=== PATIENT | female | born 1935 | race Caucasian/White ===

== ENCOUNTER 2018-10-09 09:24 | Emergency (ER) | payer MEDICARE ==
[~2018-10-09] VITALS: Ht 152.4 cm; Wt 100.0 kg
[2018-10-09 09:27] VITALS: Ht 152.4 cm; Wt 100.0 kg
[2018-10-09 09:57] LABS: BASOPHILS 0.1 % (0-2); EOSINOPHILS 0 % (0-7); HEMATOCRIT 35.5 % (36.0-48.0); HEMOGLOBIN 11.1 g/dL (12-16); IMMATURE GRANULOCYTES 0.3 % (0-5); MCH 27.3 pg (26.0-34.0); MCHC 31.3 g/dL (31.0-37.0); MCV 87.2 fL (80.0-100.0); MEAN PLATELET VOLUME 9.4 fL (7.4-10.4); NEUTROPHILS 77.6 % (40-80); PLATELET COUNT 338 10x3/uL (130-400); RBC 4.07 10x6/uL (4.00-5.40); RDW 17.1 % (11.5-14.5); WBC 10.3 10x3/uL (4.8-10.8)
[2018-10-09 10:08] LABS: ANION GAP 13.5 mmol/L (8-16); CALCIUM 8.9 mg/dL (8.5-10.1); CARBON DIOXIDE 29.4 mmol/L (21.0-32.0); CREATININE - SERUM 1.1 mg/dL (0.6-1.3); POTASSIUM - SERUM 3.9 mmol/L (3.5-5.1)
[2018-10-09 10:52] LABS: APTT 38.1 SECONDS (22.8-39.4); INR 1.41 (0.85-1.17); PROTIME 16.7 SECONDS (11.6-15.0)
[2018-10-09 11:16] LABS: APPEARANCE CLEAR (CLEAR); BACTERIA FEW /hpf (NONE SEEN); BILIRUBIN NEGATIVE (NEGATIVE); COLOR YELLOW (YELLOW); GLUCOSE NEGATIVE (NEGATIVE); KETONE SMALL mg/dL (NEGATIVE); NITRITE NEGATIVE (NEGATIVE); PROTEIN NEGATIVE (NEGATIVE); RED CELLS - URINE OCC /hpf (0-5); SPECIFIC GRAVITY 1.015 (1.005-1.020); UROBILINOGEN NORMAL (NORMAL); WHITE CELLS - URINE 0-5 /hpf (0-5)
[2018-10-09] MEDS ORDERED: VOLTAREN75 MG PO (11:30)
[2018-10-09] MEDS ORDERED: BACLOFEN20 M1 PO (11:30)
[2018-10-09 12:11] VITALS: BP 169/67
[2018-10-10] MEDS ORDERED: AVAPRO300 MG PO (10:03)
[2018-10-10] MEDS ORDERED: ALDACTONE25 MG PO (10:03)
[2018-10-10] MEDS ORDERED: TIROSINT75 MCG PO (10:03)
[2018-10-10] MEDS ORDERED: BUMETANIDE0.5 MG PO (10:03)
[2018-10-10] MEDS ORDERED: XARELTO10 MG PO (10:04)
[2018-10-10] MEDS ORDERED: PACERONE200 MG PO (10:04)
[2018-10-10] MEDS ORDERED: BYSTOLIC5 MG PO (10:05)
[2018-10-10] MEDS ORDERED: BUSPAR 15 MG TA15 MG PO (10:05)
[2018-10-10] MEDS ORDERED: PRAVACHOL80 MG PO (10:05)
[2018-10-10] MEDS ORDERED: NAMENDA10 MG PO (10:06)
[2018-10-13 10:24] VITALS: Ht 152.4 cm; Wt 100.0 kg
== END 2018-10-09 12:12 | disposition home or self-care (01) ==
LOC: D.ER 09:24
PROVIDERS: Family Medicine
DX: S49.92XA Unspecified injury of left shoulder and upper arm, initial encounter (principal); W18.30XA Fall on same level, unspecified, initial encounter; Y93.89 Activity, other specified; Y92.019 Unspecified place in single-family (private) house as the place of occurrence of the external cause; M79.18 Myalgia, other site

== ENCOUNTER 2018-10-10 09:57 | Observation (INO) | payer MEDICARE ==
[~2018-10-10] VITALS: Ht 154.9 cm; Wt 94.9 kg
[~2018-10-10 09:57] MED LIST: BACLOFEN20 M1 PO; VOLTAREN75 MG PO
[2018-10-10] MEDS ORDERED: ALDACTONE25 MG PO (10:03)
[2018-10-10] MEDS ORDERED: TIROSINT75 MCG PO (10:03)
[2018-10-10] MEDS ORDERED: AVAPRO300 MG PO (10:03)
[2018-10-10] MEDS ORDERED: BUMETANIDE0.5 MG PO (10:03)
[2018-10-10] MEDS ORDERED: XARELTO10 MG PO (10:04)
[2018-10-10] MEDS ORDERED: PACERONE200 MG PO (10:04)
[2018-10-10] MEDS ORDERED: PRAVACHOL80 MG PO (10:05)
[2018-10-10] MEDS ORDERED: BYSTOLIC5 MG PO (10:05)
[2018-10-10] MEDS ORDERED: BUSPAR 15 MG TA15 MG PO (10:05)
[2018-10-10] MEDS ORDERED: NAMENDA10 MG PO (10:06)
[2018-10-10 11:09] LABS: BASOPHILS 0.1 % (0-2); EOSINOPHILS 0.3 % (0-7); HEMATOCRIT 35.7 % (36.0-48.0); HEMOGLOBIN 11.1 g/dL (12-16); IMMATURE GRANULOCYTES 0.2 % (0-5); LYMPHOCYTES 10.3 % (15-50); MCH 27.1 pg (26.0-34.0); MCHC 31.1 g/dL (31.0-37.0); MCV 87.3 fL (80.0-100.0); MEAN PLATELET VOLUME 9.6 fL (7.4-10.4); MONOCYTES 11.7 % (2-11); NEUTROPHILS 77.4 % (40-80); PLATELET COUNT 318 10x3/uL (130-400); RBC 4.09 10x6/uL (4.00-5.40); RDW 17.1 % (11.5-14.5)
[2018-10-10 11:29] LABS: ALBUMIN 3.4 g/dL (3.4-5.0); ALKALINE PHOSPHATASE 50 U/L (46-116); ALT (SGPT) 45 U/L (10-68); BILIRUBIN - TOTAL 0.46 mg/dL (0.2-1.3); CALC OSMOLALITY 289 mosm/kg (275-300); CALCIUM 8.6 mg/dL (8.5-10.1); CARBON DIOXIDE 28.3 mmol/L (21.0-32.0); CHLORIDE - SERUM 105 mmol/L (98-107); GLUCOSE 115 mg/dL (74-106); POTASSIUM - SERUM 3.9 mmol/L (3.5-5.1); PROTEIN - SERUM 7.2 g/dL (6.4-8.2); SODIUM 143 mmol/L (136-145); UREA NITROGEN 24 mg/dL (7-18); eGFR NON AFRICAN AMERICAN 56 mL/min (90-120)
[2018-10-10 11:38] LABS: CREATINE KINASE 722 UL (21-215); MAGNESIUM - SERUM 2.2 mg/dL (1.8-2.4); TROPONIN-I 0.026 ng/mL (0.000-0.060)
[2018-10-10 11:41] LABS: APTT 33.2 SECONDS (22.8-39.4); INR 1.16 (0.85-1.17); PROTIME 14.3 SECONDS (11.6-15.0)
[2018-10-10 12:10] VITALS: BP 177/79
[2018-10-10 13:04] VITALS: BP 157/82
--- NOTE | 2018-10-10 14:15 | NUR ---
PT TO THE FLOOR VIA BED, DAUGHTER ANS SON N LAW WITH PT. ASSISTED GETTING PT INTO BED. CALL LIGHT WITHIN REACH AND BED IN LOWEST POSITION.
[2018-10-10 15:00] VITALS: BP 176/72; BMI 39.0
[2018-10-10 15:32] VITALS: BP 176/72
--- NOTE | 2018-10-10 17:29 | NUR ---
PT WOKE WHEN TALKED VERY LOUDLY. PT ASKED IF SHE COULD GO PEE, GOT PT TO BC. PT HAS LOTS OF JERKING AND MUSCLE SPAMS. ASSISTED PT BACK TO BED. PT WAS ABLE TO BARE WEIGHT ON OWN JUST VERY UNSTEADY. GOT PT COMFORTABLE. CALL LIGHT WITHIN REACH AND BED IN LOWEST POSITION.
--- NOTE | 2018-10-10 19:58 | NUR ---
RECIEVED UP IN BED WITH EYES OPEN. UNABLE TO ANSWER QUESTIONS. HAS WORD SALAD AT THIS TIME. NO OBVIOUS S/S OF DISTRESS. BRUISING TO LEFT ARM . IV TO RIGHT FA SL AT THIS TIME.
[2018-10-10 21:11] VITALS: BP 121/46
--- NOTE | 2018-10-10 23:17 | NUR ---
ABLE TO GIVE MEDICATION. MORE ALERT AND ABLE TO ANSWER SIMOLE QUESTIONS. STILL BABBLES SOME. RIGHT EYE STLL SLUGGISH AND LEFT EYE BRISK. REFUSED DINNER STATED "NOT HUNGRY". C/O SOME BACK PAIN.
--- NOTE | 2018-10-11 02:33 | NUR ---
MORE ALERT ANAD ORIENTED X2. CONFUSED TO TIME AND SITUATION. ANSWERS CLEARLY AND APPROPRIATLY. IV OUT AND RESTARTED TO LEFT HAND WITH 22G ATTEMPTS X1. NS INFUSING AT 125CCF/HR. DENIES ANY NEEDS AT THIS TIME.
--- NOTE | 2018-10-11 03:04 | NUR ---
UP IN BED WITH EYES OPEN AND TV ON. NO S/S OF DISTRESS OBSERVED.
[2018-10-11 03:55] VITALS: BP 147/64
[2018-10-11 06:37] LABS: BASOPHILS 0 % (0-2); EOSINOPHILS 0 % (0-7); HEMATOCRIT 32.4 % (36.0-48.0); IMMATURE GRANULOCYTES 0.2 % (0-5); LYMPHOCYTES 7.3 % (15-50); MCHC 30.9 g/dL (31.0-37.0); MCV 87.3 fL (80.0-100.0); MONOCYTES 6.7 % (2-11); NEUTROPHILS 85.8 % (40-80); PLATELET COUNT 343 10x3/uL (130-400); RBC 3.71 10x6/uL (4.00-5.40); RDW 17.1 % (11.5-14.5); WBC 9.7 10x3/uL (4.8-10.8)
[2018-10-11 06:49] LABS: CALC OSMOLALITY 293 mosm/kg (275-300); CALCIUM 8.3 mg/dL (8.5-10.1); CARBON DIOXIDE 24.3 mmol/L (21.0-32.0); CHLORIDE - SERUM 107 mmol/L (98-107); CKMB 1.9 U/L (0.0-3.6); CREATININE - SERUM 0.9 mg/dL (0.6-1.3); GLUCOSE 132 mg/dL (74-106); POTASSIUM - SERUM 3.8 mmol/L (3.5-5.1); SODIUM 144 mmol/L (136-145); UREA NITROGEN 26 mg/dL (7-18); eGFR NON AFRICAN AMERICAN 63 mL/min (90-120)
[2018-10-11 06:50] LABS: CREATINE KINASE 368 UL (21-215); TROPONIN-I < 0.017 ng/mL (0.000-0.060)
--- NOTE | 2018-10-11 07:25 | NUR ---
REPORT RECEIVED. WILL CONTINUE WITH POC. PT CURRENTLY LYING SUPINE, RESTING. CALL LIGHT W/I REACH. PT IS BEDFAST AND TURN Q2H. RR EVEN AND UNLABORED ON 2L 02. NS INFUSING @125ML/HR VIA L.HAND PIV. NO S/S OF DISTRESS NOTED. WILL CTM.
[2018-10-11 08:28] VITALS: BP 174/71
[2018-10-11 12:11] VITALS: BP 163/74
[2018-10-11 13:40] VITALS: Ht 154.9 cm; Wt 94.9 kg
[2018-10-11 16:48] VITALS: BP 137/57
--- NOTE | 2018-10-11 17:06 | NUR ---
PT CURRENTLY LYING SEMI FOWLERS. CALL LIGHT W/I REACH. PT IS AA BUT CONFUSED AT TIMES TO SITUATION AND PERSON AND TIME. RR EVEN AND UNLABORED ON 2L 02. NS INFUSING @125ML/HR VIA L.HAND PIV. NO S/S OF DISTRESS NOTED. WILL CTM.
--- NOTE | 2018-10-11 18:21 | NUR ---
I have reviewed this patient and I concur with the Shift Assessment completed by the Licensed Practical Nurse today this shift.
--- NOTE | 2018-10-11 18:37 | MORECARE ---
CASE MANAGEMENT DISCHARGE SUMMARY PATIENT: BLANCA CLARK UNIT: [id number] ADM DATE: 10/10/18 AGE: 83 : 34 SEX: F ROOM/BED: D.2130 AUTHOR: MANINDER COLLADO PHYSICIAN: REFERRING PHYSICIAN: FREDA REDDING MD DATE OF SERVICE: 10/11/18 Discharge Plan Patient Name: BLANCA CLARK Facility: [facility]:[place] : 1935 Planned Disposition: Anticipated Discharge Date: Discharge Date: Expected LOS: Initial Reviewer: [email or web address] Initial Review Date: 10/11/2018 Generated: 10/11/18 7:37 pm Coverage Notice Reviewer: [id number] - Gorge Hrarison Notice Issued Date-Time: 10/11/2018 18:16 Notice Type: Medicare Outpatient Observation Notice Notice Delivered To: Family Member Relationship to Patient: Daughter Climate Change Analyst Name: PATSY NIELSEN Delivery Method: HAND - Hand Delivered Kathy Days: Prior Verbal Notification: Recipient Understood Notice: Yes Recipient Signature: Yes Med Rec Note Co-signed by Attending: Coverage Notice Comment: Patient Name: BLANCA CLARK Page [phone] at 1837 All edits/amendments must be made on the electronic document DICTATION DATE: 10/11/181835 PATROL SERGEANT: DARIO 10/11/181835 RPT#: [id number] DC DATE: STATUS: ADM IN [facility] [address] [place] [address] END OF REPORT
[2018-10-11 20:00] VITALS: BP 149/51
[2018-10-12 00:30] VITALS: BP 169/61
[2018-10-12 04:30] VITALS: BP 152/63
[2018-10-12 06:57] LABS: BASOPHILS 0.1 % (0-2); EOSINOPHILS 0.6 % (0-7); HEMOGLOBIN 10.3 g/dL (12-16); IMMATURE GRANULOCYTES 0.4 % (0-5); LYMPHOCYTES 12.8 % (15-50); MCH 26.8 pg (26.0-34.0); MCHC 30.3 g/dL (31.0-37.0); MCV 88.3 fL (80.0-100.0); MEAN PLATELET VOLUME 10.1 fL (7.4-10.4); MONOCYTES 12.9 % (2-11); NEUTROPHILS 73.2 % (40-80); PLATELET COUNT 338 10x3/uL (130-400); RBC 3.85 10x6/uL (4.00-5.40); RDW 17.2 % (11.5-14.5); WBC 10.8 10x3/uL (4.8-10.8)
[2018-10-12 07:20] LABS: ANION GAP 12.1 mmol/L (8-16); CARBON DIOXIDE 24.7 mmol/L (21.0-32.0); POTASSIUM - SERUM 3.8 mmol/L (3.5-5.1)
[2018-10-12 08:17] VITALS: BP 156/64
[2018-10-12 12:08] VITALS: BP 140/54
[2018-10-12 13:31] LABS: APPEARANCE CLEAR (CLEAR); BILIRUBIN NEGATIVE (NEGATIVE); COLOR STRAW (YELLOW); GLUCOSE NEGATIVE (NEGATIVE); KETONE NEGATIVE (NEGATIVE); NITRITE NEGATIVE (NEGATIVE); PROTEIN NEGATIVE (NEGATIVE); UROBILINOGEN NORMAL (NORMAL)
--- NOTE | 2018-10-12 14:53 | MORECARE ---
CASE MANAGEMENT DISCHARGE SUMMARY PATIENT: BLANCA CLARK UNIT: [id number] ADM DATE: 10/10/18 AGE: 83 : 34 SEX: F ROOM/BED: D.2130 AUTHOR: MANINDER COLLADO PHYSICIAN: REFERRING PHYSICIAN: FREDA REDDING MD DATE OF SERVICE: 10/12/18 Discharge Plan Patient Name: BLANCA CLARK Facility: [facility]:[place] : 1935 Planned Disposition: Anticipated Discharge Date: Discharge Date: Expected LOS: Initial Reviewer: [email or web address] Initial Review Date: 10/11/2018 Generated: 10/12/18 3:53 pm Comments DCP- Discharge Planning Updated by [email or web address]: Wendy Sims on 10/12/18 1:[address] MARTÍN WHIPPLE APN WITH DR LUCAS CAME TO ME QUESTIONING OPTIONS FOR THE OBSERVATION PATIENT. OPTIONS DISCUSSED. TALKED WITH PATIENT AND HER DAUGHTER AND SON-IN-LAW (AFTER VERBAL CONSENT RECEIVED). PATIENT AND DAUGHTER VERY INTERESTED. RELAYED THIS TO MARTÍN AND TO MAX PORTER CM IN REHAB. CHARLOTTE STATED SHE COULD HAVE THE SCREEN COMPLETED AND PT COULD DISCHARGE TODAY. RELAYED THIS TO NAVEEN RESENDIZ WHO STATED SHE WOULD DISCHARGE. Coverage Notice Reviewer: [email or web address] - Gorge Christy Notice Issued Date-Time: 10/11/2018 18:16 Notice Type: Medicare Outpatient Observation Notice Notice Delivered To: Family Member Relationship to Patient: Daughter Birdcage Assembler Name: PATSY NIELSEN Delivery Method: HAND - Hand Delivered Kathy Days: Prior Verbal Notification: Recipient Understood Notice: Yes Recipient Signature: Yes Med Rec Note Co-signed by Attending: Coverage Notice Comment: Last DP export: 10/11/18 5:37 pm Patient Name: BLANCA CLARK Page [phone] at 1453 All edits/amendments must be made on the electronic document DICTATION DATE: 10/12/181451 DRUM SANDER: DARIO 10/12/18 145 RPT#: [id number] DC DATE: STATUS: ADM IN [facility] [address] [place] [address] END OF REPORT
[2018-10-12] MEDS ORDERED: ACETAMINOPHEN325 MG PO (15:02)
[2018-10-12 15:58] VITALS: BP 130/55
--- NOTE | 2018-10-12 17:15 | MORECARE ---
CASE MANAGEMENT DISCHARGE SUMMARY PATIENT: BLANCA CLARK UNIT: [id number] ADM DATE: 10/10/18 AGE: 83 : 34 SEX: F ROOM/BED: D.2130 AUTHOR: MANINDER COLLADO PHYSICIAN: REFERRING PHYSICIAN: FREDA REDDING MD DATE OF SERVICE: 10/12/18 Discharge Plan Patient Name: BLANCA CLARK Facility: [facility]:[place] : 1935 Planned Disposition: Inpatient Rehab Anticipated Discharge Date: 10/12/18 Discharge Date: Expected LOS: 2 Initial Reviewer: [email or web address] Initial Review Date: 10/11/2018 Generated: 10/12/18 6:15 pm Comments DCP- Discharge Planning Updated by [email or web address]: Wendy Sims on 10/12/18 1:[address] [facility]N WHIPPLE APN WITH DR LUCAS CAME TO ME QUESTIONING OPTIONS FOR THE OBSERVATION PATIENT. OPTIONS DISCUSSED. TALKED WITH PATIENT AND HER DAUGHTER AND SON-IN-LAW (AFTER VERBAL CONSENT RECEIVED). PATIENT AND DAUGHTER VERY INTERESTED. RELAYED THIS TO MARTÍN AND TO MAX PORTER CM IN REHAB. CHARLOTTE STATED SHE COULD HAVE THE SCREEN COMPLETED AND PT COULD DISCHARGE TODAY. RELAYED THIS TO NAVEEN RESENDIZ WHO STATED SHE WOULD DISCHARGE. Coverage Notice Reviewer: [email or web address] - Gorge Christy Notice Issued Date-Time: 10/11/2018 18:16 Notice Type: Medicare Outpatient Observation Notice Notice Delivered To: Family Member Relationship to Patient: Daughter Outside Sales Account Manager Name: PATSY NIELSEN Delivery Method: HAND - Hand Delivered Kathy Days: Prior Verbal Notification: Recipient Understood Notice: Yes Recipient Signature: Yes Med Rec Note Co-signed by Attending: Coverage Notice Comment: Last DP export: 10/12/18 1:53 pm Patient Name: BLANCA CLARK Page [phone] at 1715 All edits/amendments must be made on the electronic document DICTATION DATE: 10/12/181714 GRANULATOR MACHINE OPERATOR: DARIO 10/12/181714 RPT#: [id number] DC DATE: STATUS: ADM IN [facility] [address] [place] [address] END OF REPORT
--- NOTE | 2018-10-12 17:27 | NUR ---
WITHOUT CHANGES OR DISTRESS NOTED AT THIS TIME. DENIES NEEDS
--- NOTE | 2018-10-12 19:39 | NUR ---
AWAITING TRANSFER TO REHAB FLOOR ALERT AND OX3 PERHAPS NOT COMPLETELY TO SITUATION. O2/2L LUNGS DEMINISHED BUT CLEAR ASSISTED UP TO BEDSIDE CHAIR AT THIS TIME AND PROVIDED CALL LIGHT PT TOLERATED WELL
--- NOTE | 2018-10-12 20:35 | NUR ---
DCED At this time via wc to rehab room [id number]
== END 2018-10-12 20:46 ==
LOC: D.ER 09:57 → D.EDHOLD 12:40 → OBSVTIME 12:40 → D.M2 13:23
PROVIDERS: Family Medicine; ADMIT Internal Medicine Nephrology; ATTEND Internal Medicine Nephrology
DX: T42.8X1A Poisoning by antiparkinsonism drugs and other central muscle-tone depressants, accidental (unintentional), initial encounter (principal); G24.09 Other drug induced dystonia; G72.0 Drug-induced myopathy; I25.10 Atherosclerotic heart disease of native coronary artery without angina pectoris; I48.91 Unspecified atrial fibrillation; I10 Essential (primary) hypertension; K21.9 Gastro-esophageal reflux disease without esophagitis; E66.9 Obesity, unspecified; Z68.39 Body mass index [BMI] 39.0-39.9, adult

== ENCOUNTER 2018-10-12 21:22 | Inpatient (IN) | payer MEDICARE ==
[~2018-10-12 21:22] MED LIST changes: +ACETAMINOPHEN325 MG PO; +ALDACTONE25 MG PO; +AVAPRO300 MG PO; +BUMETANIDE0.5 MG PO; +BUSPAR 15 MG TA15 MG PO; +BYSTOLIC5 MG PO; +NAMENDA10 MG PO; +PACERONE200 MG PO; +PRAVACHOL80 MG PO; +TIROSINT75 MCG PO; +XARELTO10 MG PO
[2018-10-13 00:24] VITALS: BP 165/74; BMI 40.3
[2018-10-13 07:58] VITALS: BP 172/63
[2018-10-13 10:24] VITALS: BMI 40.2
[2018-10-13 10:38] LABS: BASOPHILS 0.1 % (0-2); EOSINOPHILS 1.4 % (0-7); HEMATOCRIT 34.8 % (36.0-48.0); HEMOGLOBIN 10.8 g/dL (12-16); IMMATURE GRANULOCYTES 0.4 % (0-5); LYMPHOCYTES 15.2 % (15-50); MEAN PLATELET VOLUME 9.9 fL (7.4-10.4); MONOCYTES 15.9 % (2-11); PLATELET COUNT 372 10x3/uL (130-400); RDW 16.7 % (11.5-14.5); WBC 8.3 10x3/uL (4.8-10.8)
[2018-10-13 10:45] LABS: ANION GAP 12.3 mmol/L (8-16); CALCIUM 8.2 mg/dL (8.5-10.1); CARBON DIOXIDE 27.9 mmol/L (21.0-32.0); CREATININE - SERUM 1.2 mg/dL (0.6-1.3)
[2018-10-13 10:46] LABS: POTASSIUM - SERUM 3.2 mmol/L (3.5-5.1)
[2018-10-13 20:02] VITALS: BP 155/64
[2018-10-14 08:01] VITALS: BP 153/60
[2018-10-14 19:00] VITALS: BP 128/50
[2018-10-15 08:00] VITALS: BP 161/74
[2018-10-15 08:29] LABS: ANION GAP 12.2 mmol/L (8-16); CALCIUM 8.1 mg/dL (8.5-10.1); CARBON DIOXIDE 27.7 mmol/L (21.0-32.0); CREATININE - SERUM 0.9 mg/dL (0.6-1.3)
[2018-10-15 08:36] LABS: BASOPHILS 0.1 % (0-2); EOSINOPHILS 1.2 % (0-7); HEMATOCRIT 32.2 % (36.0-48.0); HEMOGLOBIN 10.1 g/dL (12-16); IMMATURE GRANULOCYTES 0.5 % (0-5); LYMPHOCYTES 15.2 % (15-50); MCH 26.7 pg (26.0-34.0); MCHC 31.4 g/dL (31.0-37.0); MCV 85.2 fL (80.0-100.0); MEAN PLATELET VOLUME 10.1 fL (7.4-10.4); MONOCYTES 19.2 % (2-11); NEUTROPHILS 63.8 % (40-80); PLATELET COUNT 340 10x3/uL (130-400); RBC 3.78 10x6/uL (4.00-5.40); RDW 16.6 % (11.5-14.5); WBC 8.5 10x3/uL (4.8-10.8)
[2018-10-15 19:15] VITALS: BP 147/57
[2018-10-16 08:38] VITALS: BP 175/55
[2018-10-16 20:29] VITALS: BP 138/54
[2018-10-17 19:05] VITALS: BP 129/43
[2018-10-18 08:00] VITALS: BP 147/74
[2018-10-18 08:03] LABS: BASOPHILS 0.1 % (0-2); EOSINOPHILS 2.8 % (0-7); HEMATOCRIT 32.7 % (36.0-48.0); HEMOGLOBIN 10.1 g/dL (12-16); IMMATURE GRANULOCYTES 0.7 % (0-5); MCH 26.4 pg (26.0-34.0); MCHC 30.9 g/dL (31.0-37.0); MCV 85.4 fL (80.0-100.0); MEAN PLATELET VOLUME 9.4 fL (7.4-10.4); MONOCYTES 16.7 % (2-11); NEUTROPHILS 59.7 % (40-80); RBC 3.83 10x6/uL (4.00-5.40); RDW 16.4 % (11.5-14.5); WBC 6.8 10x3/uL (4.8-10.8)
[2018-10-18 08:06] LABS: PLATELET COUNT 416 10x3/uL (130-400)
[2018-10-18 08:10] LABS: CALCIUM 8.4 mg/dL (8.5-10.1); CARBON DIOXIDE 31.2 mmol/L (21.0-32.0); CREATININE - SERUM 1.1 mg/dL (0.6-1.3); POTASSIUM - SERUM 4.2 mmol/L (3.5-5.1)
--- NOTE | 2018-10-18 09:58 | RHP ---
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 The patient presents to the ER on 10/10/2018 with altered mental status and sedation, she fell on 10/08/2018 went to the ER, was prescribed baclofen 20 mg 4 times daily. She was given two of the back about 6 hours apart. She became very sedated. She required max assist times 2 to mobilize her prior to coming to the hospital. CT of her head was clear for bleed. She takes Xarelto at home for atrial fibrillation and was worried that from a fall that maybe she had an inner cerebral bleed. She has got a history of hypothyroidism, coronary artery disease, AFib, pacemaker placement. She has had a history of joint replacement, hysterectomy in the past. She was followed in the acute hospital secondary to a dystonic type drug reaction to baclofen. She is unable to recall time and things that happen when she was on the baclofen. Her confusion cleared, monitor closely and receiving IV Solu-Medrol. She is currently on telemetry. She is on supplemental O2. She was not on this at home. She is deconditioned. She has debility. She has got proximal muscle weakness, impaired mobility and self-care deficit. These are all barriers to discharge at this time. She lives at home, was moderately independent with rolling walker for mobility, independent to moderately independent with ADLs. She is currently set up for max assist for ADLs and [id number] assist for mobility. She and her family hopefully will get her back home after acute stay if we can get her back to her prior level of functioning. COMORBIDITIES: In this patient include dystonic drug reaction, altered mental status, atrial fib, hypertension, deconditioning, debility, weakness, acute memory loss, self-care deficit and recent falls and also myopathy. PAST MEDICAL HISTORY: Significant for atrial fib, hypothyroidism, history of pacemaker placement, coronary artery disease, breast cancer, acid reflux, arthritis, joint problems. PAST SURGICAL HISTORY: Includes hip surgery, knee surgery, hysterectomy. She has had angioplasty and stent placement and pacemaker placement. ALLERGIES: CODEINE, DOXAZOSIN AND OBVIOUSLY DOES NOT NEED TO BE TAKING ANY BACLOFEN, AND PENICILLIN. CURRENT MEDICATIONS: Include Bystolic 10 mg daily, Avapro 150 mg daily, spironolactone 25 mg daily. She is on Xarelto 10 mg daily, Pravachol 80 mg at bedtime, Namenda 10 mg b.i.d., Synthroid 75 mcg daily, Bumex 0.5 mg daily, amiodarone 200 mg at bedtime, and Tylenol 650 every 4 hours p.r.n. HABITS: No current alcohol or tobacco use. HISTORY AND PHYSICAL [id number] BLANCA CLARK FAMILY HISTORY: Noncontributory. SOCIAL HISTORY: The patient hopes to return back home and get back to her prior level of functioning. REVIEW OF SYSTEMS: GENERAL: Does complain of weakness and fatigue. HEENT: Denies cold, cough, or congestion. CARDIOVASCULAR: Denies chest pain. PHYSICAL EXAMINATION: VITAL SIGNS: Stable, afebrile. GENERAL: A morbidly obese female, in no distress upon exam. HEENT: Normocephalic and atraumatic. Mucosa moist. NECK: Supple. No lymphadenopathy. LUNGS: Clear at this time with no wheeze, rhonchi or rales. HEART: Irregular rate and rhythm. No murmurs, rubs, or gallops. ABDOMEN: Benign, nontender, nondistended. EXTREMITIES: No clubbing, cyanosis or edema. She does have some excoriations from previous falls. NEUROLOGIC: She does have noted proximal muscle weakness, difficulty arising, cannot even get up from a sitting position at this time. Admit labs are pending at this time. 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 The patient has potential to make improvement. We instituted the following multidisciplinary therapies include, but not limited to physical, occupational, respiratory, speech, nutritional services, prosthetics and orthotics. Given her complex medical condition and risk for more complications, rehabilitation services cannot be provided at a low level of care such as skilled nurse facility. PLAN: 1. Admit to [facility] rehab for intensive inpatient therapy to include the following disciplines: A. Physical therapy to improve gait, all transfer skills and bed mobility to a modified independent level. B. Occupational therapy to a modified independent level. C. Case management to assist with discharge planning and placement options. D. Nutrition to assist with nutritional needs. E. Rehabilitation nursing to assist in monitoring the patient's underlying medical conditions and to assist with any type of bowel or bladder management. 2. The patient's current medication and medical care will be continued. 3. We will try to titrate her off her O2 during her stay. 4. We will work on her proximal muscle weakness and self-care deficits, which are barriers to her discharge at this time and once we getting her up and around and independent again with her care, we will get her back home. TRANSINT:[id number] Voice Confirmation ID: [id number] DOCUMENT ID: [id number] MISSY notes whether there has been none or any medical/functional change since admission: - No change since preadmission screen. HISTORY AND PHYSICAL [id number] BLANCA CLARK attests patient continues to be appropriate for IRF: - Continues to be appropriate. CHAR DUONG MD at 0958 CC: [id number] DICTATION DATE: 10/13/18817 YARDING SUPERVISOR: 10/13/18 0852 ADM IN [facility] [id number] [place] [address]
[2018-10-18 19:00] VITALS: BP 156/68
[2018-10-19 08:00] VITALS: BP 158/67
[2018-10-19 19:00] VITALS: BP 121/49
[2018-10-20 07:58] LABS: ANION GAP 10.2 mmol/L (8-16); CALCIUM 8.9 mg/dL (8.5-10.1); CARBON DIOXIDE 30.8 mmol/L (21.0-32.0)
[2018-10-20 08:09] LABS: BASOPHILS 0.1 % (0-2); EOSINOPHILS 1.9 % (0-7); HEMATOCRIT 35.6 % (36.0-48.0); HEMOGLOBIN 11.1 g/dL (12-16); IMMATURE GRANULOCYTES 0.6 % (0-5); LYMPHOCYTES 17.6 % (15-50); MCH 26.9 pg (26.0-34.0); MCHC 31.2 g/dL (31.0-37.0); MCV 86.4 fL (80.0-100.0); MEAN PLATELET VOLUME 9.4 fL (7.4-10.4); MONOCYTES 16.2 % (2-11); NEUTROPHILS 63.6 % (40-80); PLATELET COUNT 420 10x3/uL (130-400); RBC 4.12 10x6/uL (4.00-5.40); RDW 16.8 % (11.5-14.5); WBC 8.4 10x3/uL (4.8-10.8)
[2018-10-20 13:21] VITALS: BP 116/49
[2018-10-20 19:00] VITALS: BP 145/51
[2018-10-21 08:00] VITALS: BP 121/36
[2018-10-21 19:00] VITALS: BP 109/52
[2018-10-22 06:23] LABS: ANION GAP 12.2 mmol/L (8-16); CALCIUM 8.3 mg/dL (8.5-10.1); CARBON DIOXIDE 28.8 mmol/L (21.0-32.0)
[2018-10-22 06:24] LABS: CREATININE - SERUM 1.4 mg/dL (0.6-1.3)
[2018-10-22 06:59] LABS: BASOPHILS 0.3 % (0-2); EOSINOPHILS 2.2 % (0-7); HEMATOCRIT 32.5 % (36.0-48.0); HEMOGLOBIN 10.2 g/dL (12-16); IMMATURE GRANULOCYTES 0.3 % (0-5); LYMPHOCYTES 25.7 % (15-50); MCH 26.7 pg (26.0-34.0); MCHC 31.4 g/dL (31.0-37.0); MCV 85.1 fL (80.0-100.0); MEAN PLATELET VOLUME 9.2 fL (7.4-10.4); NEUTROPHILS 56.5 % (40-80); PLATELET COUNT 442 10x3/uL (130-400); RBC 3.82 10x6/uL (4.00-5.40); RDW 16.6 % (11.5-14.5)
[2018-10-22 07:00] LABS: WBC 5.9 10x3/uL (4.8-10.8)
[2018-10-22 08:00] VITALS: BP 148/38
[2018-10-23 07:29] VITALS: BP 139/54
[2018-10-23 19:05] VITALS: BP 149/43
[2018-10-24 08:39] VITALS: BP 84/63
[2018-10-24 18:54] VITALS: BP 120/41
[2018-10-25 06:13] LABS: ANION GAP 11.5 mmol/L (8-16); CALCIUM 8.4 mg/dL (8.5-10.1); CARBON DIOXIDE 27.7 mmol/L (21.0-32.0); CREATININE - SERUM 1.2 mg/dL (0.6-1.3); POTASSIUM - SERUM 4.2 mmol/L (3.5-5.1)
[2018-10-25 06:27] LABS: BASOPHILS 0.5 % (0-2); EOSINOPHILS 2.1 % (0-7); HEMATOCRIT 33.2 % (36.0-48.0); HEMOGLOBIN 10.4 g/dL (12-16); IMMATURE GRANULOCYTES 0.3 % (0-5); LYMPHOCYTES 27.5 % (15-50); MCH 26.9 pg (26.0-34.0); MCHC 31.3 g/dL (31.0-37.0); MCV 85.8 fL (80.0-100.0); MEAN PLATELET VOLUME 9.2 fL (7.4-10.4); MONOCYTES 13.5 % (2-11); NEUTROPHILS 56.1 % (40-80); PLATELET COUNT 449 10x3/uL (130-400); RBC 3.87 10x6/uL (4.00-5.40); RDW 16.6 % (11.5-14.5); WBC 6.6 10x3/uL (4.8-10.8)
[2018-10-25 08:01] VITALS: BP 113/81
[2018-10-25 19:00] VITALS: BP 116/33
[2018-10-26 07:34] VITALS: BP 130/59
[2018-10-26 19:00] VITALS: BP 119/41
[2018-10-27 08:36] VITALS: BP 98/49
[2018-10-27 09:26] VITALS: BP 138/52
[2018-10-27 19:00] VITALS: BP 101/44
[2018-10-28 08:00] VITALS: BP 143/61
[2018-10-28] MEDS ORDERED: K-DUR20 MEQ PO (08:17)
== END 2018-10-28 13:59 | disposition home health service (06) | DRG 92 ==
LOC: D.REHAB 21:22
PROVIDERS: ADMIT Emergency Medicine
DX: G72.0 Drug-induced myopathy (principal); G24.09 Other drug induced dystonia; R41.82 Altered mental status, unspecified; I48.91 Unspecified atrial fibrillation; I10 Essential (primary) hypertension; R53.81 Other malaise; R53.1 Weakness; R41.3 Other amnesia; E03.9 Hypothyroidism, unspecified; K21.9 Gastro-esophageal reflux disease without esophagitis; I25.10 Atherosclerotic heart disease of native coronary artery without angina pectoris; Z91.81 History of falling